=== PATIENT | male | born 1950 | race Caucasian/White ===

== ENCOUNTER 2023-05-11 13:01 | Outpatient (AMB) | payer MEDICARE, OTHER, SELFPAY ==
[2023-05-11 13:05] VITALS: BP 126/60; PULSE 84; O2SAT 96; BMI 29.7
--- NOTE | 2023-05-11 13:05 | MHC.OFFWIV ---
Intake Vital Signs 05/11/23 13:05 Height 5 ft 10 in Weight 207 lb BMI 29.7 BP 126/60 Blood Pressure Location Rt brachial Position Sitting Pulse 84 Pulse Source Pulse Oximeter Pulse Oximetry (%) 96 Oxygen Delivery Method Room Air Intake Visit Reasons: ESt/left eye irritation (lobby) Intake Note: Pt is here c/o left eye irritation. Pt states he did have two stye's in his left eye this week but completed an OTC medication for treatment. Pt states he is still having discomfort, redness, and discharge on his left eye. Patient Tobacco Use Status: Never used Tobacco Allergies atorvastatin [Lipitor] Allergy (Unknown, Verified 05/11/23 13:08) muscle pain Do you need a note to return to daycare/school/sports/work: No HPI HPI Comments History of Present Illness Details He presents to office with R lower eyelid irritation Ongoing 1.5 weeks Has stye and using warm compress and OTC ointment without relief He denies change in vision, blurred or double vision No trauma + Crusty in am but no discharge throughout day No other complaints PFSH Social History Patient Tobacco Use Status: Never used Tobacco Review of Systems Const Denies chills and Denies fever(s) Eyes Denies blurry vision, Denies exophthalmos, Denies change in vision, Reports eye discharge, Reports irritation and Reports itchy eyes ENT Denies otalgia, Denies nasal discharge and Denies sore throat Resp Denies cough Aller/Immun Reports itchy eyes Physical Exam Vital Signs: Last Vital Signs Pulse 84 05/11/23 13:05 BP 126/60 05/11/23 13:05 Pulse Ox 96 05/11/23 13:05 Oxygen Delivery Method Room Air 05/11/23 13:05 BMI result Body Mass Index 29.7 General: Non-toxic, NAD. Speaking full sentences. Skin: Warm dry throughout Eye: EOMI. PERRL. No conjunctival erythema. No FB under R upper or lower eyelid. + stye located to inner lower R eyelid along medial aspect. No active drainage. Slight tenderness to palpation Respiratory: No respiratory distress MSK: Sitting upright Neurology: A/O. No aphasia or facial droop. Gait without abnormality Psych: Good mood and affect Assessment & Plan Assessment & Plan (1) Hordeolum: Code(s): H00.019 - Hordeolum externum unspecified eye, unspecified eyelid Qualifiers: Hordeolum type: internum Laterality: right Eyelid: lower Qualified Code(s): H00.022 - Hordeolum internum right lower eyelid Plan: Pt seen and evaluated + stye Ofloxacin drops Warm compress F/U with PCP and call with concerns Pt gave verbal understanding and all questions answered Medications: New ofloxacin 0.3% 1 drp ophthalmic (eye) QID 1 week 10 mL 0RF Coding Level of Care Code Est Pt Level 3 (79784) Diagnoses Hordeolum internum of right lower eyelid H00.022 Hordeolum type: internum Laterality: right Eyelid: lower
== END 2023-05-11 13:21 | disposition home or self-care (01) ==
PROVIDERS: PCP Internal Medicine; Visit Provider Physician Assistant
DX: H00.022 Hordeolum internum right lower eyelid (principal)
CPT/HCPCS: 99213

== ENCOUNTER 2024-05-11 09:04 | Outpatient (REF) | payer MEDICARE, OTHER, SELFPAY ==
--- OUTSIDE RECORDS SUMMARY | 2024-05-11 11:14 | XMS_ITS | Clinical Summary ---
Author Organization Patient Business Ser [facility] Address [address] [place] [address] Care Team Providers Care Electronics Mechanic Name Role Phone Liam Santamaria MD Primary Care Provider [phone] Allergies Active Allergy Reactions Criticality Noted Date [...] 11:30 AM EDT Office Visit Adult Medicine [facility] [address] [place] [address] Liam Santamaria MD [address] [place] [address] 07/20/2024 8:30 AM EDT Office Visit Pulmonolgy - [place] [address] [facility] [address] [place] [phone] Kathy Lopez NP [address] [facility] [address] [place] [address] Health Maintenance Due Date Last Done Comments [...] Results * Urine Albumin Creatinine Ratio (11/25/2023) [facility] Urine Albumin Creatinine Ratio Abstracted Result [facility] HEALTH MAINTENANCE Final Result * Annual BMP Blood Test (11/25/2023) [facility] Annual BMP Blood Test Abstracted [facility] HEALTH MAINTENANCE Final Result * Hemoglobin A1c (11/25/2023) [facility] Hemoglobin A1C 6.1 <=6.5 % Blood Venous blood specimen / Unknown Result [facility] LAB BLOOD ORDERABLES Karmen l Result * (ABNORMAL) Lipid panel (11/25/2023) [facility] LDL/HDL Ratio 4 0 - 4 Triglycerides 157(A) 0 - 150 mg/dL Cholesterol 175 0 - 200 mg/dL HDL 43 >=40 mg/dL LDL Cholesterol 101(A) 0 - 100 mg/dL Blood Venous blood specimen / Unknown Result [facility] LAB BLOOD ORDERABLES Karmen l Result * Colonoscopy (12/27/2019) [facility] Colonoscopy Abstracted, No interpretation Anatomical Region Laterality Modality Other Result [facility] HEALTH MAINTENANCE Final Result * US ABDOMINAL [...] to Health Maintenance Insurance MEDICARE Care Teams Electronics Mechanic Relationship Specialty Start Date End Date Liam Santamaria MD PCP - General Internal Medicine 03/03/21
[2024-05-11 14:06] LABS: Influenza A PCR NEGATIVE (Negative); Influenza B PCR NEGATIVE (Negative); Resp Syncy Virus RNA Qual PCR NEGATIVE (Negative); SARS COV2 PCR INHOUSE POSITIVE (Negative)
== END 2024-05-11 09:05 | disposition home or self-care (01) ==
LOC: HO.LAB 09:04
PROVIDERS: Physician Assistant; PCP Internal Medicine
DX: Z13.89 Encounter for screening for other disorder (principal)
CPT/HCPCS: 0241U

== ENCOUNTER 2024-05-11 09:04 | Outpatient (AMB) | payer MEDICARE, OTHER, SELFPAY ==
[2024-05-11 09:42] VITALS: BP 106/62; PULSE 90; TEMP 36.6; O2SAT 96; BMI 28.3
--- NOTE | 2024-05-11 09:42 | AM.OFFWIN_ITS ---
Intake Vital Signs 05/11/24 09:42 Height 5 ft 10 in Weight 197 lb BMI 28.3 BP 106/62 Blood Pressure Location Lt brachial Position Sitting Pulse 90 Pulse Source Pulse Oximeter Temp 97.9 F Temp Source Oral Pulse Oximetry (%) 96 Oxygen Delivery Method Room Air Intake Visit Reasons: EP-cough, sob, mucus, stuffy nose, Patient Tobacco Use Status: Never used Tobacco Allergies atorvastatin [Lipitor] Allergy (Unknown, Verified 05/11/24 09:43) muscle pain Do you need a note to return to daycare/school/sports/work: No HPI HPI Comments History of Present Illness Details History - The patient is a 73-year-old male pres enting with persistent cough with mucus production and chest congestion. - He has a significant medical history, including Chronic Obstructive Pulmonary Disease (COPD) and a prior diagnosis of lung cancer, for which he underwent a left sided lobectomy. - The current cough has persisted for th ree weeks, characterized by substantial mucus production, resulting in discomfort and concern about pneumonia. - His management includes a daily use of Anoro inhaler and sporadic use of a rescue inhaler, Albuterol. - Home remedies such as NyQuil and chest rubs have been used without significant relief. - No fever has been noted, and there is an absence of ear and sinus pain. - The patient?s medical history also inc ludes gallbladder disease, diagnosed incidentally during evaluation for a presumed heart attack. Physical Exam General: Cooperative, healthy appearing, comfortable and no acute distress Orientation/consciousness: Patient oriented x3 Limitations: No limitations Head: Normal to inspection Ears: Hearing grossly normal bilaterally, external ears normal and TM's normal bilaterally Nose: Normal external nose present, Normal nares present and No nasal discharge present Face and sinus: Normal facial exam and Yes sinuses nontender Mouth: Normal oral and palatal mucosa present and moist mucous membranes Throat: Yes tonsils normal, Yes uvula midline. Posterior oropharynx erythema Eyes: Appearance normal, both eyes and all related structures Neck: Normal visual inspection Respiratory: Clear but dim to auscultation bilaterally. Normal respiratory effort, able to speak in complete sentences, Actively coughing, no respiratory distress, not tachypneic, no tripod positioning and no use of accessory muscles Cardiovascular: Regular rate and rhythm. Normal S1 and S2 Skin: No rashes or lesions noted Neuro: Patient oriented x3 Extremities: Normal to inspection and Yes no clubbing, cyanosis or edema PFSH Social History Patient Tobacco Use Status: Never used Tobacco Review of Systems Const All systems reviewed & are unremarkable except as noted in HPI and below Physical Exam Vital Signs: Last Vital Signs Temp 97.9 F 05/11/24 09:42 Pulse 90 05/11/24 09:42 BP 106/62 05/11/24 09:42 Pulse Ox 96 05/11/24 09:42 Oxygen Delivery Method Room Air 05/11/24 09:42 BMI result Body Mass Index 28.3 Assessment & Plan Assessment & Plan (1) Lower respiratory infection (e.g., bronchitis, pneumonia, pneumonitis, pulmonitis): Code(s): J22 - Unspecified acute lower respiratory infection Plan: O2 95%, dim lungs, will get CXR with gis medical history. Considering the patient's chronic pulmonary condition and history of recurrent bacterial infections, I propose a comprehensive approach, including diagnostic imaging to confirm or rule out pneumonia. Azithromycin will be initiated, and Tessalon Perles provided for symptomatic relief. An additional antibiotic will be sent if imaging suggests lobar pneumonia. Suggested adding an [id number] decongestant may aid in managing mucus production. These steps should address the acute exacerbations of his respiratory condition, and the patient has expressed understanding and w illingness to follow the proposed treatment plan. Results from diagnostic testing will guide subsequent adjustments. Patient was informed and verbally consented to the use of an ambient scribe for clinic note documentation during this visit Orders: Orders SARS-CoV2/FLU/RSV Today R09.89 - Other specified symptoms and signs involving the circulatory and respiratory systems XR chest 2V Today R05.9 - Cough, unspecified Medications: New benzonatate 200 mg PO BEDTIME PRN 10 caps 0RF cough azithromycin For 250 mg dose pack: take 500 mg today (day 1), then 250 mg for 4 days (days 2-5) PO 6 tabs 0RF Coding Level of Care Code New Pt Level 4 (07395) Diagnoses Lower respiratory infection (e.g., bronchitis, pneumonia, pneumonitis, pulmonitis) J22
--- OUTSIDE RECORDS SUMMARY | 2024-05-11 09:45 | XMS_ITS | Clinical Summary ---
Author Organization Patient Business Ser [facility] Address [address] [place] [address] Care Team Providers Care Academic Support Coordinator Name Role Phone Liam Santamaria MD Primary Care Provider [phone] Allergies Active Allergy Reactions Criticality Noted Date Comments Atorvastatin Calcium 02/21/2007 Muscle pain Medications albuterol HFA (PROAIR HFA ; PROVENTIL HFA ; VENTOLIN HFA) 90 mcg/actuation inhaler Inhale 2 puffs by mouth. 10/04/2022 Active pravastatin (PRAVACHOL) 20 mg tablet Take 1 tablet (20 mg total) by mouth 1 (one) time each day. 09/30/2023 Active umeclidinium-vi lanteroL (Anoro Ellipta) 62.5-25 mcg/actuation inhaler Inhale 1 puff by mouth. 10/03/2023 Active ketoconazole (NIZORAL) 2 % shampoo USE A FACE WASH EVERY DAY AND SCALP SHAMPOO 3 X WEEKLY 06/29/2023 Active ibuprofen (ADVIL,MOTRIN) 800 mg tablet Take 1 tablet (800 mg total) by mouth every 8 (eight) hours if needed. 09/10/2022 Active Active Problems Problem Noted Date Diagnosed Date Overweight (BMI 25.0-29.9) 05/12/2022 Microalbuminuria 05/12/2022 Normocytic anemia 09/28/2019 Type II diabetes mellitus with renal manifestati ons 06/28/2019 Stage 3 severe COPD by GOLD classification 12/26 Microscopic hematuria 08/09/2017 History of lobectomy of lung 11/20/2014 Overview (12/21/2023): LL for treatment of Lung CA, T2NO Adenosquamous Diverticulitis of colon without hemorrhage 09/18 Overview (12/21/2023): Incidental finding at colonoscopy 09/18/2014. Ankle pain 04/10/2008 Overview (12/21/2023): Right ankle, multiple orthopedic surgeries. The patient follow and [facility] Pure hypercholesterolemia 02/12/2005 Immunizations Name Administration Dates Next Due H1N1 Inj Preservative Free 03/18/2009 Influenza trivalent, 0.5mL ( Fluad) 65yo and older 11/23/2022,01/19/2022,11/17/2020,03/15,11/20/2014,12/18/2013,12/06/2012 ,11/09/2011,12/07/2008 Influenza trivalent, 0.5mL, preservative free (Fluarix; FluLaval; Fluzone) ages 6mo and older (Afluria) 3 years and older 12/15/2018,05/06/2011,12/13/2007,02/06 Influenza trivalent, with pr eservative (Fluzone; Afluria) 6mo and older 12/26/2017 Pfizer SARS-CoV-2 COVID-19, mRNA, LNP-S, preservative free 03/23/2021,05/20/2020,05/05/2020,04/07 Pneumococcal conjugate 13 va lent (Prevnar 13, PCV13) 2mo and older 08/09/2017 Pneumococcal conjugate 20 va lent (Prevnar 20, PCV 20) 2mo and older 01/19/2022 Pneumococcal polysaccharide 23 valent (Pneumovax 23) 2yo and older 11/08/2014,04/09/2013 Td Tetanus diptheria (Tdvax) 7yo and older 05/11/2022,03/23/2004 Td, Unspecified 03/23/2004 Tdap Tetanus diptheria acell ular pertussis (Boostrix; Adacel) 7yo and older 05/08/2012 Zoster Live 05/08/2012 Surgical History Surgery Date Site/Laterality Comments ANKLE SURGERY PROCEDURE: HISTORICAL ANKLE SURGERY KNEE ARTHROSCOPY PROCEDURE: NE ARTHROSCOPY AID TX SPINE&/FX KNEE W/O FIXJ OTHER SURGICAL HISTORY 2002 PROCEDURE: NE RADIAL KERATOTOMY; COMMENT: lasik surg 2003 COLONOSCOPY 06/04/2004 PROCEDURE: HISTORICAL COLONOSCOPY; COMMENT: normal COLONOSCOPY 09/18/2014 PROCEDURE: HISTORICAL COLONOSCOPY; COMMENT: 8 mm sigmoid colon polyp: tubular adenoma. OTHER SURGICAL HISTORY PROCEDURE: PARTIAL LUNG REMOVAL W/WEDGE RESECT; COMMENT: LLL COLONOSCOPY 12/27/2019 PROCEDURE: HISTORICAL COLONOSCOPY; COMMENT: Diverticulosis, no polyps. Medical History Medical History Date Comments Pure hypercholesterolemia 02/12/2005 DX:Pur e hypercholesterolemia Tobacco use disorder 02/06/2007 DX:Tobacco use disorder; COMMENT: Rare cigar Obesity 02/06/2007 DX:Obesity Diverticulosis of colon (wit hout mention of hemorrhage) 09/18/2014 DX:Diverticulosis of colon ( without mention of hemorrhage); COMMENT: Incidental finding at colonoscopy 09/18/2014. History of diabetes mellitus DX: History of diabetes mellitus Adenocarcinoma, lung (CMS/HCC) D X:Adenocarcinoma, lung (HCC) Bronchitis DX:Bronchitis Lung cancer (CMS/HCC) DX:Lung ca ncer (HCC) Family History Medical History Relation Name Comments Pancreatic cancer Father Diabetes Mother Blindness Neg Hx Cataracts Neg Hx Colon cancer Neg Hx Glaucoma Neg Hx Macular degeneration Neg Hx Strabismus Neg Hx Relation Name Status Comments Brother Alive DM Daughter 1 Alive Daughter 2 Alive Father Pancreatic Canc er Mother DM Sister Alive DM Son Alive Social History Tobacco Use Types Packs/Day Years Used Date Smoking Tobacco: Former Cigarettes Q uit: 06/05/1977 Smokeless Tobacco: Never Alcohol Use Standard Drinks/Week Comments No 0 (1 standard drink = 0.6 oz pur e alcohol) Sex and Gender Information Value Date Recorded Sex Assigned at Not on file Legal Sex Male 4:10 PM EDT Gender Identity Not on file Sexual Orientation Not on file Obstetrics History Last Filed Vital Signs Vital Sign Reading Time Taken Comments Blood Pressure 90/60 11/25/2023 8:26 AM EDT Pulse 91 11/25/2023 8:26 AM EDT Temperature - - Respiratory Rate - - Oxygen Saturation - - Inhaled Oxygen Concentration - - Weight 89.8 kg (198 lb) 11/25/2023 8:26 AM EDT Height 177.8 cm (5' 10 ) 11/25/2023 8:26 AM EDT Body Mass Index 28.41 11/25/2023 8:26 AM EDT Plan of Treatment Upcoming Encounters Date Type Department Care Team (Late st Contact Info) Description 06/01/2024 11:30 AM EDT Office Visit Adult Medicine [facility] [address] [place] [address] Liam Santamaria MD [address] [place] [address] 07/20/2024 8:30 AM EDT Office Visit Pulmonolgy - [place] [address] [facility] [address] [place] [phone] Kathy Lopez NP [address] [facility] [address] [place] [address] Health Maintenance Due Date Last Done Comments Diabetes: Annual Foot Exam 11/05/1961 Diabetes: Annual Retina Eye Exam 11/05/1961 RSV Immunization Patients 60+ Years Old (1 - Risk 60-74 years 1-dose series) 2011 Zoster Vaccines (1 of 2) 07/03/2012 05/08/2012 Depression Screening 08/15/2020 Falls Risk Assessment 08/15/2020 Social Influencers of Health Screening 08/15/2020 Medicare Annual Wellness Visit 05/12/2023 05/11/2022 COVID-19 Vaccine ( season) 2023 03/23/2021, 01/07/2021, 06/10/2020, Additional history exists Influenza Vaccine (#1) 2023 , 01/19/2022, 11/17/2020, Additional history exists Diabetes: Blood Sugar Control Test (HGBA1C) 05/24/2024 11/25/2023, 11/25/2023 Diabetes: Annual Urine Albumin-Creatinine Ratio (uACR) 11/24/2024 11/25/2023, 11/25/2023 Diabetes: Annual GFR (Glomerular Filtration Rate) 11/24/2024 11/25/2023, 11/25/2023 Colorectal Cancer Screening: Colonoscopy 12/26/2026 12/27/2019, 12/27/2019 Cholesterol Screening (Lipid Panel) 11/24/2028 11/25/2023, 11/25/2023 DTaP,Tdap,and Td Vaccines (5 - Td or Tdap) 05/11/2032 05/11/2022, 05/08/2012, 03/23/2004, Additional history exists Hepatitis C Screening Completed 04/07/2013 Abdominal Aortic Aneurysm (AAA) Screen Completed 08/25/2017, 08/25/2017 Pneumococcal Vaccine: 50+ Years Completed 01/19/2022, 08/09/2017, 11/08/2014, Additional history exists HIB Vaccines Aged Out No longer eligi ble based on patient's age to complete this topic HPV Vaccines Aged Out No longer eligi ble based on patient's age to complete this topic Hepatitis A Vaccines Aged Out No long er eligible based on patient's age to complete this topic Hepatitis B Vaccines Aged Out No long er eligible based on patient's age to complete this topic IPV Vaccines Aged Out No longer eligi ble based on patient's age to complete this topic MMR Vaccines Aged Out No longer eligi ble based on patient's age to complete this topic Meningococcal ACWY Vaccine Aged Out N o longer eligible based on patient's age to complete this topic Meningococcal B Vacine Aged Out No lo nger eligible based on patient's age to complete this topic RSV Immunization Patients Under 20 months Aged Out No longer eligible based on patient's age to complete this topic Varicella Vaccines Aged Out No longer eligible based on patient's age to complete this topic Procedures Procedure Name Priority Date/Time Associated Diagnosis Comments URINE ALBUMIN CREATININE RATIO Routine 11/25/2023 ANNUAL BMP BLOOD TEST Routine 11/25/2023 HEMOGLOBIN A1C Routine 11/25/2023 LIPID PANEL Routine 11/25/2023 COLONOSCOPY Routine 12/27/2019 US ABDOMINAL AORTA REAL TIME SCREEN STUDY AAA Routine 08/25/2017 7:39 AM EDT Personal history of nicotine dependence HEPATITIS C SCREENING Routine 04/07/2013 from Last 3 Months or Most Recently Relevant to Health Maintenance Results * Urine Albumin Creatinine Ratio (11/25/2023) [facility] Urine Albumin Creatinine Ratio Abstracted Result Critical access hospital HEALTH MAINTENANCE Final Result * Annual BMP Blood Test (11/25/2023) [facility] Annual BMP Blood Test Abstracted [facility] HEALTH MAINTENANCE Final Result * Hemoglobin A1c (11/25/2023) [facility] Hemoglobin A1C 6.1 <=6.5 % Blood Venous blood specimen / Unknown Result [facility] LAB BLOOD ORDERABLES Karmen l Result * (ABNORMAL) Lipid panel (11/25/2023) [facility] LDL/HDL Ratio 4 0 - 4 Triglycerides 157(A) 0 - 150 mg/dL Cholesterol 175 0 - 200 mg/dL HDL 43 >=40 mg/dL LDL Cholesterol 101(A) 0 - 100 mg/dL Blood Venous blood specimen / Unknown Result [facility] LAB BLOOD ORDERABLES Karmen l Result * Colonoscopy (12/27/2019) [facility] Colonoscopy Abstracted, No interpretation Anatomical Region Laterality Modality Other Result Critical access hospital HEALTH MAINTENANCE Final Result * US ABDOMINAL AORTA REAL TIME SCREEN STUDY AAA (08/25/2017 7:39 AM EDT) Anatomical Region Laterality Modality Ultrasound 08/09/2017 3:31 PM EDT Narrative 08/25/2017 8:42 AM EDT US ABDOMINAL AORTA REAL TIME SCREEN STUDY AAA ABDOMINAL AORTA SCREENING ULTRASOUND History: ??History of tobacco use. Screening for abdominal aortic aneurysm. Comparison: None. FINDINGS: ??The proximal aorta measures 2.0 cm in diameter. The mid aorta measures 1.7 cm in diameter. The distal aorta measures 1.5 cm in diameter. No periaortic fluid collection is seen. The aortic bifurcation is normal in appearance. The proximal bilateral common iliac arteries are normal in caliber. IMPRESSION: IMPRESSION: No visualized abdominal aortic aneurysm. Procedure Note Ambar Woo MD - 02/23/2022 US ABDOMINAL AORTA REAL TIME SCREEN STUDY AAA ABDOMINAL AORTA SCREENING ULTRASOUND History: History of tobacco use. Screening for abdominal aorticaneurysm. Comparison: None. FINDINGS: The proximal aorta measures 2.0 cm in diameter. The mid aortameasures 1.7 cm in diameter. The distal aorta measures 1.5 cm in diameter. No periaorticfluid collection is seen. The aortic bifurcation is normal in appearance. The proximal bilateralcommon iliac arteries are normal in caliber. IMPRESSION: IMPRESSION: No visualized abdominal aortic aneurysm. Sol Greer DO IMG US PROCEDURES Final Result * Hepatitis C Screening (04/07/2013) Hepatitis C Screening Abstracted Historical Provider HEALTH MAINTENANCE Final Result from Last 3 Months or Most Recently Relevant to Health Maintenance Insurance MEDICARE Care Teams Academic Support Coordinator Relationship Specialty Start Date End Date Liam Santamaria MD PCP - General Internal Medicine 03/03/21
== END 2024-05-11 10:13 | disposition home or self-care (01) ==
PROVIDERS: PCP Internal Medicine; Visit Provider Physician Assistant
DX: J22 Unspecified acute lower respiratory infection (principal)

== ENCOUNTER 2024-05-11 10:10 | Outpatient (REF) | payer MEDICARE, OTHER, SELFPAY ==
--- NOTE | ~2024-05-11 | XR_ITS ---
EXAMINATION: XR CHEST 2 VIEWS HISTORY: R05.9 - Cough, unspecified COMPARISON: There are no prior studies for comparison. FINDINGS: PA and lateral views of the chest are submitted. The lungs are expanded and clear. There is no pleural effusion, pneumothorax, or pulmonary vascular congestion. The heart is normal in size. The bones are intact. XR/XR chest 2V IMPRESSION: Clear lungs. Electronically signed by: Jhonatan Meraz MD 05/11/2024 10:40 AM SONYA
== END 2024-05-11 10:11 | disposition home or self-care (01) ==
LOC: HO.HMGCX 10:10
PROVIDERS: PCP Internal Medicine; Visit Provider Physician Assistant
DX: U07.1 COVID-19 (principal); J22 Unspecified acute lower respiratory infection; R05.9 Cough, unspecified
CPT/HCPCS: 0241U; 71046; 99202

== ENCOUNTER → 2024-05-11 10:15 | Outpatient (BNV) | payer MEDICARE, OTHER, SELFPAY | PROVIDERS: PCP Internal Medicine; Visit Provider Radiology Diagnostic Radiology | DX: R05.9 Cough, unspecified (principal) | CPT/HCPCS: 71046 ==